=== PATIENT | male | born 1965 | race Two or more races ===

== ENCOUNTER 2017-11-29 01:21 | Emergency (ER) | payer OTHER ==
[2017-11-29 01:31] VITALS: TEMP 97.7
--- NOTE | 2017-11-29 01:44 | EDPHY ---
H & P Stated Complaint: PAIN, THROBBING, R MIDDLE FINGER Time Seen by Provider: 11/29/17 01:32 HPI/ROS: Chief Complaint: Right middle finger pain HPI: 51-year-old male with pain and swelling at the base of his nail bed of his right middle finger. He has been getting worse for the past week or so. No redness up his hand. No fevers or chills. No numbness or weakness. ROS: 10 point Review of Systems is negative except as noted in the HPI. Family History: [non-contributory] Physical Exam: General: Awake, alert, no acute distress Right hand: He has a paronychia at the base of his right 3rd finger nail bed. There is no proximal erythema. No warmth. There is no significant digit swelling. He has full flexion extension without any pain. There is no tenderness along the flexor or extensor tendon sheath. Sensation intact. Skin: No rash - Personal History Current Tetanus Diphtheria and Acellular Pertussis (TDAP): Yes Tetanus Vaccine Date: 2009 - Medical/Surgical History Hx Asthma: No Hx Chronic Respiratory Disease: No Hx Diabetes: No Hx Cardiac Disease: No Hx Renal Disease: No Hx Cirrhosis: No Hx Alcoholism: No Hx HIV/AIDS: No Hx Splenectomy or Spleen Trauma: No Other PMH: HTN - Social History Smoking Status: Never smoked Constitutional: Initial Vital Signs Temperature (C) 36.5 C 11/29/17 01:28 Heart Rate 65 11/29/17 01:28 Respiratory Rate 16 11/29/17 01:28 Blood Pressure 117/71 11/29/17 01:28 O2 Sat (%) 98 11/29/17 01:28 O2 Delivery Mode Room Air Allergies/Adverse Reactions: No Known Allergies Allergy (Verified 03/25/13 13:08) Home Medications: Medication Instructions Recorded Aspirin 11/29/17 Lisinopril 11/29/17 Medical Decision Making Procedures: Procedure: Digital nerve block, indication is digit anesthesia for procedure. Patient was prepped with chlorhexidine Skin prep. 0.5% bupivacaine was infiltrated in the medial in lateral aspects for with a dorsal approach at the base of the proximal phalanx with blockage of both dorsal and volar nerves. Total of 1 mL was infiltrated. There were no complications. Procedure was performed by myself. Procedure: Abscess drainage, paronychia. The patient's paronychia was located on the right long finger. I obtained verbal consent from the patient to drain the abscess who was informed about the possibility of bleeding and pain. The abscess was incised with scissors and a moderate amount of purulent drainage was expressed. I irrigated the wound and placed some packing. The patient tolerated the procedure well. The procedure was performed by myself. Departure - Departure Disposition: Home, Routine, Self-Care Clinical Impression: Paronychia of finger Condition: Good Instructions: Paronychia (ED) Additional Instructions: The gauze packing in the wound needs to be removed in 2 days. Follow up with your primary care physician in 3-4 days for recheck. Alternate acetaminophen (1000 mg) with ibuprofen (400 mg) every 4 hours as needed for pain. Return to the emergency department for increasing redness, increasing pain, fevers, or any other concerns. Referrals: NONE *PRIMARY CARE P,. [Primary Care Provider] - As per Instructions
[2017-11-29 02:22] VITALS: BP 118/80; PULSE 80; RESP 18; O2SAT 99
== END 2017-11-29 02:23 | disposition home or self-care (01) ==
PROC: 0H9FXZZ Drainage of Right Hand Skin, External Approach (ICD-10-PCS; principal; 2017-11-29)
DX: L03.011 Cellulitis of right finger (principal); I10 Essential (primary) hypertension; Z79.82 Long term (current) use of aspirin